=== PATIENT | male | born 1935 | race Two or more races ===

== ENCOUNTER → 2019-08-27 | Emergency (ER) | payer OTHER ==
[~2019-08-27] VITALS: Ht 177.8 cm; Wt 97.5 kg
== END | disposition left against medical advice (07) ==
LOC: ER 10:09 → CPU-OBS 11:08
DX: R60.0 Localized edema (principal); I87.2 Venous insufficiency (chronic) (peripheral); I87.8 Other specified disorders of veins; Z03.818 Encounter for observation for suspected exposure to other biological agents ruled out; R06.02 Shortness of breath